=== PATIENT | male | born 1985 | race Caucasian/White ===

== ENCOUNTER 2021-01-31 13:00 | Emergency (ER) | payer BC ==
[~2021-01-31] VITALS: Ht 188 cm; Wt 72.7 kg
[~2021-01-31 13:00] MED LIST: CLEOCIN HC150 MG/CAP PO; NO HOME MEDICATIONS
[2021-01-31 13:03] VITALS: TEMP 97.9
[2021-01-31 13:28] LABS: BASO % 0.7 % (0.0-2.0); EOS # 0.1 (0.0-0.7); EOS % 1.9 % (0-4.0); GRAN # 3.1 (1.4-6.5); GRAN % 71.4 % (42.2-75.2); HEMATOCRIT 41.5 % (42.0-52.0); LYMPH # 0.7 (1.2-3.4); LYMPH % 15.6 % (20.0-51.0); MEAN CELL VOLUME 103 fl (80.0-100.0); MEAN CORPUSCULAR HEMOGLOBIN 37 pg (27.0-31.0); MEAN CORPUSCULAR HGB CONC 36 g/dl (33.0-37.0); MEAN PLATELET VOLUME 10.3 fl (7.4-10.4); MONO # 0.4 (0.1-0.6); MONO % 10.2 % (1.7-9.3); PLATELET COUNT 105 K/mm3 (130-400); RED BLOOD COUNT 4.05 M/mm3 (4.20-5.60); REDCELL DISTRIBUTION WIDTH-CV 11.9 % (11.5-14.5)
[2021-01-31 14:10] LABS: MAGNESIUM 1.1 mg/dL (1.6-2.3)
[2021-01-31 14:14] LABS: BILIRUBIN,TOTAL 1.6 mg/dL (0.0-1.0); CALCIUM 9.6 mg/dL (8.4-10.2); CREATININE, serum 0.77 (0.66-1.25); POTASSIUM 3.2 mmol/L (3.4-5.0); TOTAL PROTEIN 7.8 gm/dL (6.4-8.2)
[2021-01-31 14:45] LABS: TSH w REFLEX 1.02 uIU/mL (0.465-4.680)
[2021-01-31 16:23] VITALS: BP 151/104; PULSE 80
== END 2021-01-31 16:25 | disposition left against medical advice (07) ==
LOC: COL.ER 13:00
PROVIDERS: Emergency Medicine
DX: E87.6 Hypokalemia (principal); E83.42 Hypomagnesemia; E87.2 Acidosis; R94.5 Abnormal results of liver function studies; F10.239 Alcohol dependence with withdrawal, unspecified; F17.210 Nicotine dependence, cigarettes, uncomplicated
CPT/HCPCS: J2060; J7030

== ENCOUNTER 2021-02-05 08:00 | Emergency (ER) | payer BC ==
[~2021-02-05] VITALS: Ht 188 cm; Wt 72.7 kg
[2021-02-05 08:14] VITALS: TEMP 98.2
[2021-02-05 09:00] LABS: BASO % 0.9 % (0.0-2.0); EOS # 0.2 (0.0-0.7); EOS % 5.1 % (0-4.0); GRAN # 1.6 (1.4-6.5); GRAN % 49.1 % (42.2-75.2); HEMATOCRIT 37.4 % (42.0-52.0); HEMOGLOBIN 13.5 g/dl (13.5-18.0); LYMPH # 1.1 (1.2-3.4); LYMPH % 32.3 % (20.0-51.0); MEAN CELL VOLUME 104 fl (80.0-100.0); MEAN CORPUSCULAR HEMOGLOBIN 37 pg (27.0-31.0); MEAN CORPUSCULAR HGB CONC 36 g/dl (33.0-37.0); MEAN PLATELET VOLUME 10.8 fl (7.4-10.4); MONO # 0.4 (0.1-0.6); MONO % 12.3 % (1.7-9.3); PLATELET COUNT 109 K/mm3 (130-400); RED BLOOD COUNT 3.61 M/mm3 (4.20-5.60); REDCELL DISTRIBUTION WIDTH-CV 11.9 % (11.5-14.5)
[2021-02-05 09:07] LABS: ALBUMIN 4.2 gm/dL (3.5-5.0); BILIRUBIN,TOTAL 0.8 mg/dL (0.0-1.0); CALCIUM 8.9 mg/dL (8.4-10.2); CREATININE, serum 0.49 (0.66-1.25); POTASSIUM 3.8 mmol/L (3.4-5.0); TOTAL PROTEIN 6.7 gm/dL (6.4-8.2)
[2021-02-05 12:28] LABS: TRICYCLIC ANTIDEPRESS URINE NEGATIVE
[2021-02-05 12:40] VITALS: BP 140/106; PULSE 75
--- NOTE | 2021-02-05 13:28 | NUR ---
LESLEY responded to consult. The patient is here for alcohol detox and informed his RN that the would like to go to a detox center. LESLEY contacted [facility] in [place]. The campus receptionist reports that they do have beds available today. LESLEY met with the patient. The patient lives in [place] with his , Marianna (ph#[phone]) and their two children. He states that his is a blessing for [employer]. He states that he has been drinking every night for awhile now. His last drink was around 0315 this morning. LESLEY informed him about [facility]. The patient was interested in going to [facility] and he states that his can transport him there. LESLEY contacted Bert at [facility]. Bert reports that they have to do a phone assessment with the patient first, to determine if the patient meets criteria. LESLEY coordinated the phone call between Bert and the patient. After the assessment was completed, LESLEY contacted Bert to follow up. Bert reports that the patient does meet criteria and that they would be able to accept him today. She just requests that him or his contact them when they have an ETA. Bert reports that they do not need the patient's records or any orders. LESLEY contacted and updated the patient's , Wendie. Wendie was in agreement to the plan. She states that she gets off of work around [id number] and then can transport the patient to [facility]. LESLEY provided Wendie with [facility]'s phone number to call for the ETA. LESLEY updated the patient and the patient's RN. No additional needs at this time.
== END 2021-02-05 12:40 | disposition home or self-care (01) ==
LOC: COL.ER 08:00
PROVIDERS: Personal Emergency Response Attendant
DX: F10.239 Alcohol dependence with withdrawal, unspecified (principal); R23.4 Changes in skin texture; F17.210 Nicotine dependence, cigarettes, uncomplicated; Y90.6 Blood alcohol level of 120-199 mg/100 ml
CPT/HCPCS: C9113; J2060; J3411; J3475; J7030